=== PATIENT | female | born 1945 | race Caucasian/White ===

== ENCOUNTER → 2017-12-03 | Outpatient (CLI) | payer MEDICARE ==
--- NOTE | 2017-12-08 11:00 | ECHO ---
DATE OF SERVICE: 12/08/2017 ECHOCARDIOGRAM FINDINGS: The left and right ventricles are of normal size and normal contractility. There are no regional LV wall motion abnormalities. Left ventricular ejection fraction is 30%. Aortic valve is anatomically normal and there is no insufficiency or stenosis. The mitral valve is anatomically normal. There is no mitral regurgitation. Transmitral Doppler inflow shows evidence of abnormal diastolic relaxation. The atrial size is normal and symmetric bilaterally. There is a very slight pericardial effusion over the right atrium without any evidence of tamponade. CONCLUSION: 1. Global left ventricular hypokinesis with ejection fraction 30%. 2. Abnormal diastolic relaxation. 3. Trace pericardial effusion over the right atrium. 4. Otherwise normal echo. EDITH DOBBS MD DR: [email or web address]/juliet JOB# [id number]
== END | disposition home or self-care (01) ==
LOC: RT 08:30
DX: I48.0 Paroxysmal atrial fibrillation (principal)
CPT/HCPCS: 93307